=== PATIENT | female | born 1950 | race Caucasian/White ===

== ENCOUNTER 2018-11-24 01:26 | Inpatient (IN) ==
--- NOTE | 2018-11-17 17:19 | EKG Report ---
Test Performed on : 11/17/2018 5:11:41 PM Test Reason : PAT Blood Pressure : / mmHG Vent. Rate : 076 BPM Atrial Rate : 076 BPM P-R Int : 148 ms QRS Dur : 092 ms QT Int : 382 ms P-R-T Axes : 051 080 045 degrees QTc Int : 429 ms Sinus rhythm. with premature atrial complexes. Otherwise normal ECG When compared with ECG of 03-OCT-2014 15:13, Previous ECG has undetermined rhythm, needs review ST no longer elevated in Inferior leads Nonspecific T wave abnormality no longer evident in Inferior leads Nonspecific T wave abnormality no longer evident in Anterolateral leads Unconfirmed Result
[2018-11-17 17:37] LABS: BASO# 0.02 X1000 (0.0-0.2); BASO% 0.3 % (0.0-0.8); EOS# 0.14 X1000 (0.0-0.7); EOS% 1.8 % (0.0-10.0); HEMATOCRIT 41.1 % (37.0-47.0); HEMOGLOBIN 13.2 g/dL (12.0-16.0); LYMPH% 13.2 % (20.5-51.1); MCH 27.4 PG (27-31); MCHC 32.1 g/dL (33-37); MCV 85.4 FL (81-99); MONO# 0.52 X1000 (0.11-0.59); MONO% 6.8 % (1.7-9.3); MPV 10.6 FL (7.4-10.4); NEUT# 5.92 X1000 (1.4-6.5); NEUT% 77.9 % (42.2-75.2); PLT 206 X1000 (130-400); RBC 4.81 XMIL (4.2-5.4); RDW 15.9 % (11.5-14.5)
[2018-11-17 17:49] LABS: INR 0.93; PROTIME 13.3 Seconds (11.0-16.0)
[2018-11-17 17:50] LABS: PTT 29.1 Seconds (22.3-41.8)
[2018-11-17 18:01] LABS: CALCIUM 8.7 mg/dL (8.8-10.2); CREATININE 1.1 mg/dL (0.5-0.9); POTASSIUM 4.2 mmol/L (3.5-5.1)
[2018-11-18 13:51] LABS: URINE SOURCE VOIDED
[2018-11-18 13:57] LABS: BILIRUBIN URINE NEGATIVE (NEGATIVE); BLOOD URINE NEGATIVE (NEGATIVE); COLOR ORANGE; GLUCOSE URINE NEGATIVE (NEGATIVE); KETONE URINE NEGATIVE (NEGATIVE); LEUKOCYTES URINE NEGATIVE (NEGATIVE); NITRITE URINE NEGATIVE (NEGATIVE); PROTEIN URINE TRACE mg/dL (NEGATIVE); SP GRAVITY URINE 1.025; TURBIDITY URINE TURBID (CLEAR); UROBILINOGEN URINE NORMAL (NORMAL)
[2018-11-18 13:59] LABS: UR EPITHELIAL CELLS <10 /HPF (<10); URINE BACTERIA NEGATIVE /HPF; URINE RBC <10 /HPF (<10); URINE WBC <10 /HPF (<10)
[2018-11-18 14:06] LABS: URINE CRYSTALS CA OXALATE PRESENT
[2018-11-24] MEDS ORDERED: PEPCID ONE (05:40)
[2018-11-24] MEDS ORDERED: COLACE ONE (05:40)
[2018-11-24] MEDS ORDERED: LR 1,000 ML ONE (05:40)
[2018-11-24] MEDS ORDERED: REGLAN ONE (05:40)
[2018-11-24] MEDS ORDERED: LYRICA ONE (05:40)
[2018-11-24] MEDS ORDERED: CELEBREX ONE (05:40)
[2018-11-24] MEDS ORDERED: KEFZOL 2 GM/D5W 2 GM/50 ML IVPB ONE (05:41)
[2018-11-24] MEDS ORDERED: XYLOCAINE-MPF 2% ONE (06:20)
[2018-11-24] MEDS ORDERED: FENTANYL ONE (06:21)
[2018-11-24] MEDS ORDERED: DIPRIVAN 1% ONE (06:21)
[2018-11-24] MEDS ORDERED: QUELICIN (DOSE) ONE (06:22)
[2018-11-24] MEDS ORDERED: TORADOL ONE (06:37)
[2018-11-24] MEDS ORDERED: DURAMORPH ONE (06:37)
[2018-11-24] MEDS ORDERED: SODIUM CHLORIDE 0.9% ONE (06:38)
[2018-11-24] MEDS ORDERED: EXPAREL 1.3% ONE (06:38)
[2018-11-24] MEDS ORDERED: CYKLOKAPRON 1,000 MG/NS 1,000 MG/100 ML IVPB ONE (06:38)
[2018-11-24] MEDS ORDERED: NEOSPORIN G.U. IRRIGANT ONE (06:38)
[2018-11-24] MEDS ORDERED: SENSORCAINE-MPF 0.5%/EPI 1:200,000 ONE (06:38)
[2018-11-24] MEDS ORDERED: DECADRON ONE (07:29)
[2018-11-24] MEDS ORDERED: ZOFRAN ONE (07:29)
[2018-11-24] MEDS ORDERED: OFIRMEV 1000 MG/ISOTONIC SOLN 1,000 MG/100 ML BOTTLE ONE (07:29)
[2018-11-24] MEDS ORDERED: VANCOMYCIN ONE (07:44)
[2018-11-24] MEDS ORDERED: NS 1,000 ML ONE (09:04)
[2018-11-24 09:10] LABS: URINE SOURCE CATH
[2018-11-24] MEDS: DILAUDID ONE ×4 (09:12→09:51)
[2018-11-24 09:14] LABS: BILIRUBIN URINE NEGATIVE (NEGATIVE); BLOOD URINE NEGATIVE (NEGATIVE); COLOR YELLOW; GLUCOSE URINE NEGATIVE (NEGATIVE); KETONE URINE 10 mg/dL (NEGATIVE); LEUKOCYTES URINE NEGATIVE (NEGATIVE); NITRITE URINE NEGATIVE (NEGATIVE); PROTEIN URINE 30 mg/dL (NEGATIVE); SP GRAVITY URINE 1.016; TURBIDITY URINE CLEAR (CLEAR); UROBILINOGEN URINE NORMAL (NORMAL)
[2018-11-24 09:20] LABS: UR EPITHELIAL CELLS <10 /HPF (<10); URINE BACTERIA NEGATIVE /HPF; URINE RBC <10 /HPF (<10); URINE WBC <10 /HPF (<10)
--- NOTE | 2018-11-24 09:23 | OPERATIVE NOTE ---
PROCEDURE DATE: 11/24/2018 POSTOPERATIVE DIAGNOSIS: Right proximal humeral fracture with possible nonunion, status post open reduction-internal fixation. POSTOPERATIVE DIAGNOSES: Right proximal humeral fracture with nonunion, status post open reduction-internal fixation. PROCEDURE: 1. Removal hardware right proximal humerus. 2. Right reverse shoulder arthroplasty with DePuy Delta Xtend size 8 cemented stem, 38 +3 humeral cup, a 38 eccentric Glenosphere and a standard metaglene. SURGEON: Otis Black MD. FIRST ASSISTANTS: SHENA Salguero. SECOND MANUFACTURING ENGINEER SUPERVISOR: Danny Bernard RN. ANESTHESIA: General. IV FLUIDS: 1400 mL lactated Ringer's. ESTIMATED BLOOD LOSS: 50 mL. COMPLICATIONS: None. INDICATION: The patient is a pleasant, 68-year-old female, who is status post fall in July. She underwent open reduction-internal fixation in [facility]. She has continued with some pain and discomfort. X-rays revealed some changes to the humeral head and still continues with some radiolucency at the fracture site suspicious for a nonunion. Given the patient's continued pain and discomfort and her radiographic findings, recommendation to proceed with removal of hardware and proceeding with reverse total shoulder arthroplasty. Risks of benefits of surgery were explained, including the risks of anesthesia, , bleeding, infection, failure to relieve pain, postoperative stiffness, nerve injury, blood clots, and other imponderables. All questions were answered. The patient and family wished to proceed with surgery. DETAILS OF OPERATION: The patient was taken to the operating room and placed supine on the operating table. Once adequate anesthesia was obtained, patient was placed in the semi-Maxwell beach-chair position. The right shoulder was subsequently prepped and draped in usual sterile fashion. A standard deltopectoral incision was made through the previous surgical incision. Hemostasis was obtained using electrocautery. The deltopectoral interval was then developed. Patient did have significant adhesions and scarring. Elevation of the deltoid was performed. Retractor was placed. Elevation of the conjoined tendon was performed as well. The plate was identified. After this had been identified, all screws were removed, as well as the plate. Patient was noted to have movement at the site of the fracture site consistent with a nonunion. The patient has significant irregularity along the humeral head as well. Further release of the subscapularis tendon was performed. Given the patient's nonunion, the site of the fracture was elevated at this time with an osteotome with removal of the humeral head and with the greater and lesser tuberosities removed given the findings. After removal of the proximal fragment, the rongeur was used to remove more small bone debris. Attention was then turned to the glenoid. Circumferential dissection was then performed with a deep knife. A guide was then placed in position. A guide pin was placed. Reaming was then conducted. The central hole was then dilated. The wound was copiously irrigated with antibiotic pulsatile lavage. After this had been performed, a standard metaglene was then impacted into position. Two locking screws were placed and 2 nonlocking screws. After this had been performed, wound was copiously irrigated with antibiotic pulsatile lavage. A standard 38 eccentric Glenosphere was then placed with the eccentricity placed inferiorly. After this had been performed, the intramedullary guide was then placed in the intramedullary humerus. Sequential reaming was conducted and size 8 appeared to be correct size. Vancomycin was mixed with cement on back table once copious irrigation was performed in the intramedullary canal. The cement was then placed in the intramedullary canal and the size 8 stem was then placed in position, approximately 15 degrees of retroversion and at the appropriate height. After this had been performed, the cement had cured, it was deemed that a 38+ 3 humeral cup appeared to be correct size. The wound was copiously irrigated. A 38+ 3 humeral cup was then placed. The shoulder was reduced, carried through range of motion and had excellent stability and good range of motion. Exparel was placed in deep soft tissue, as well as the subcutaneous tissue. Copious irrigation was performed once again with antibiotic pulsatile lavage. 2-0 Vicryl was then used to repair the subcutaneous tissue, followed by running 2-0 Prolene. Benzoin and Steri-Strips were applied. Adaptic, sterile 4 x 4, ABD pad, and tape applied to the right shoulder, followed by a shoulder immobilizer. All counts were correct. Patient tolerated procedure well and was transferred to the recovery room in stable condition. cc: Otis Black MD
--- NOTE | 2018-11-24 12:07 | Diag Imaging Result Doc PS360 ---
SHOULDER 1 VIEW RIGHT - 11/24/2018 INDICATION: post op TECHNIQUE: COMPARISON: None FINDINGS: There has been right total shoulder arthroplasty. Alignment is grossly anatomic. No hardware fracture or loosening. IMPRESSION: No definite complication. Electronically signed by Meir Campbell 11/24/2018 12:05 PM
[2018-11-24] MEDS ORDERED: OXY IR PO PRN (12:30)
[2018-11-24] MEDS ORDERED: ZOFRAN PO PRN (12:30)
[2018-11-24] MEDS ORDERED: MORPHINE IV PRN ×3 (12:30)
[2018-11-24] MEDS ORDERED: MILK OF MAGNESIA PO PRN (12:30)
[2018-11-24] MEDS ORDERED: CYKLOKAPRON 1,000 MG in NS 100 ML IV ONE (13:15)
[2018-11-24] MEDS: OXY IR PO PRN (13:55)
[2018-11-24] MEDS: NS 1,000 ML IV SCH ×2 (13:56→23:14)
[2018-11-24] MEDS: KEFZOL 2 GM/D5W 2 GM/50 ML IVPB IV SCH ×2 (16:51→23:14)
[2018-11-24] MEDS ORDERED: INSULIN LISPRO SQ PRN (17:29)
[2018-11-24] MEDS: HUMALOG SUBQ SCH (22:00)
[2018-11-24] MEDS: NEURONTIN PO SCH (22:09)
[2018-11-24] MEDS: PERIDEX MT SCH (22:10)
[2018-11-24 23:01] LABS: URINE SOURCE VOIDED
[2018-11-24 23:16] LABS: BILIRUBIN URINE NEGATIVE (NEGATIVE); BLOOD URINE TRACE (NEGATIVE); COLOR YELLOW; GLUCOSE URINE 500 mg/dL (NEGATIVE); KETONE URINE 40 mg/dL (NEGATIVE); LEUKOCYTES URINE NEGATIVE (NEGATIVE); NITRITE URINE NEGATIVE (NEGATIVE); PH URINE 5.5; PROTEIN URINE 30 mg/dL (NEGATIVE); SP GRAVITY URINE 1.018; TURBIDITY URINE CLEAR (CLEAR); UROBILINOGEN URINE NORMAL (NORMAL)
[2018-11-24 23:18] LABS: UR EPITHELIAL CELLS <10 /HPF (<10); URINE BACTERIA NEGATIVE /HPF; URINE RBC <10 /HPF (<10); URINE WBC <10 /HPF (<10)
[2018-11-25] MEDS: HUMALOG SUBQ SCH ×2 (06:07→13:05)
[2018-11-25] MEDS ORDERED: INSULIN PEN NEEDLES ONE (06:26)
--- NOTE | 2018-11-25 06:29 | PROGRESS NOTE ---
DATE: 11/25/2018 SUBJECTIVE: The patient is a pleasant, 68-year-old female who is 1 day status post removal of hardware right proximal humerus with right reverse shoulder arthroplasty. The patient is currently resting comfortably. OBJECTIVE: On physical exam, the patient's wound looks good. There is no signs or symptoms of infection. She is able to flex and extend her fingers. 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 Compartments are soft. LABS: Pending. IMPRESSION: Postoperative day #1 status post removal of hardware right proximal humerus and right reverse shoulder arthroplasty. PLAN: At this point, the patient will change her dressing and will plan on discharging home after physical therapy. We will arrange for home physical therapy. cc: Otis Black MD
[2018-11-25 06:39] LABS: HEMATOCRIT 38.4 % (37.0-47.0); HEMOGLOBIN 12.4 g/dL (12.0-16.0)
[2018-11-25 07:12] LABS: CALCIUM 8.7 mg/dL (8.8-10.2); CREATININE 1.2 mg/dL (0.5-0.9); POTASSIUM 4.3 mmol/L (3.5-5.1)
[2018-11-25 07:34] VITALS: BP 199/50
[2018-11-25] MEDS: NS 1,000 ML IV SCH (08:16)
[2018-11-25] MEDS: PERIDEX MT SCH (08:29)
[2018-11-25] MEDS: SINGULAIR PO SCH ×2 (08:29→08:34)
[2018-11-25] MEDS: NEURONTIN PO SCH (08:29)
[2018-11-25] MEDS ORDERED: NORVASC PO SCH (09:00)
[2018-11-25] MEDS ORDERED: BASAGLAR SUBQ SCH (09:00)
[2018-11-25] MEDS ORDERED: PRINIVIL PO SCH (09:00)
[2018-11-25] MEDS: OXY IR PO PRN ×2 (09:09→16:18)
== END 2018-11-25 16:35 | disposition home health service (06) | DRG 483 ==
LOC: SURHOLD 01:26 → 4N 08:43
PROVIDERS: ADMIT Orthopaedic Surgery Adult Reconstructive Orthopaedic Surgery; ATTEND Orthopaedic Surgery Adult Reconstructive Orthopaedic Surgery
CPT/HCPCS: 73020; 80048; 81001; 82948; 85014; 85018; 85025; 85610; 85730; 86850; 86900; 86901; 87070; 87075; 87205; 93005; 93010; 97162; 97530; A9270; C9290; J0131; J0330; J0690; J1100; J1170; J1815; J1885; J2270; J2274; J2275; J2405; J3010; J3370; J7030; J7120; Q9974; XXXXX